=== PATIENT | male | born 1975 | race Caucasian/White ===

== ENCOUNTER 2017-04-30 09:04 | Emergency (ER) | payer BC, SELFPAY ==
[2017-04-30 09:30] VITALS: BP 109/75; PULSE 81; RESP 18; TEMP 37.1; O2SAT 98; BMI 28.1
--- NOTE | 2017-04-30 09:47 | HMH.EDUTC ---
[facility] [place] Impression: Influenza A Disposition: Home, Self-Care Condition on Discharge: Good Instructions: DI for Influenza -- Adult Additional Instructions: *Discussed risks, side effects, risk of allergic reaction, and possible benefits. We even discussed hallucinations and uncontrollable fevers. Pt decline tamiflu * Lots of rest * Increase fluids, water, gatorade, powerade, pedialyte if /toddler/child * Monitor Temp. Tylenol every 4 hours as needed no more then 5 times a day or 4000mg in 24 hours and/or ibuprofen every 6 hours as needed no more then 3200mg in 24 hours (as long as your primary care doctor has told you that it is ok to take both) for fever/aches/pain. ER if fever no less than 101 despite tylenol and Ibuprofen * Bromfed may cause drowsiness. Know how it effects you (or your child) before driving, caring for small children, or sending your child to school. No other antihistamines/allergy medications/decongestants while taking bromfed. * You (or your child) are contagious until no fever, aches, chills x 24 hours without medication for symptoms. I understand you would like to try and go back Monday but if still symptomatic, be sure to follow up See primary care, utc or ER IMMEDIATELY for new or worsening symptoms, improvement followed by suddenly feeling worse OR no noticeable improvement over the next 48-72 hours. 911 for difficulty breathing Prescriptions: Brompheniramine/Pseudoephed/Dm [Bromfed DM Cough Syrup 5mL] 10 ml PO QID #240 ml Forms: Work/School Release Time of Disposition: 09:50 Medical Decision Making Vital Signs: 04/30/17 09:30 Temperature 98.7 F Temperature Source Temporal Artery Scan Pulse Rate [Right Radial] 81 Respiratory Rate 18 Blood Pressure [Right Arm] 109/75 Blood Pressure Mean [Right Arm] 86 Blood Pressure Source [Right Arm] Automatic Cuff Blood Pressure Position [Right Arm] Sitting 02 Sat by Pulse Oximetry 98 Oxygen Delivery Method Room Air - Lab Data Lab results reviewed: Yes: I reviewed the patient's lab results. Lab Results 04/30/17 09:44: Influenza Type A Ag Positive A, Influenza Type B Ag Negative - Renan Inquiry Pt receiving controlled substance: No [facility] [place] - General Stated complaint: flu like symptoms Time Seen by Provider: 04/30/17 09:47 Mode of Arrival: Family Vehicle Source of Information: Patient Limitations: No Limitations Description of Symptoms (Recalled from Triage Doc. by RN): flu like symptoms HEENT Symptoms (Recalled from RN notes): Yes (flu symptoms) Resp Symptoms (Recalled from RN notes): Yes (flu symptoms) Skin Symptoms (Recalled from RN notes): No MS Symptoms (Recalled from RN notes): No Functional Status (Recalled from RN notes): na - History of Present Illness Provider Complaint: c/o I guess I have flu . Body aches, chills, rhinorrhea, prod cough, yellow sputum, mild GRAVES, subjective fever. Started with minimal symptoms yesterday morning and by the end of the day I just felt like I had been run over . Tylenol helps. 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 - Related Data Home Medications Medication Instructions Recorded Confirmed Escitalopram Oxalate 10 mg PO DAILY 04/30/17 04/30/17 Previous Rx's Medication Instructions Recorded Brompheniramine/Pseudoephed/Dm 10 ml PO QID #240 ml 04/30/17 [Bromfed DM Cough Syrup 5mL] Allergies Allergy/AdvReac Type Severity Reaction Status Date / Time aspirin [ASPIRIN] Allergy Unknown Verified 04/30/17 09:36 - Worker's Comp Is this a Worker's Comp case?: No [facility] History I have reviewed the patient's past medical history: Yes Medical History: Reports:: Anxiety Other Surgeries: Yes: Other (mastoidectomy right ear) - *Social History Smoking Status: Never smoker Alcohol Intake: never - Psychiatric History Expresses thoughts of harming self/others: None Suicide Plan Description: No Plan ROS Obtained: Yes Systems reviewed
[2017-04-30 09:48] LABS: UTC Influenza A Antigen Positive (Negative); UTC Influenza B Antigen Negative (Negative)
--- NOTE | 2017-04-30 09:50 | ED_ITS ---
[facility] [place] Impression: Influenza A Disposition: Home, Self-Care Condition on Discharge: Good Instructions: DI for Influenza -- Adult Additional Instructions: *Discussed risks, side effects, risk of allergic reaction, and possible benefits. We even discussed hallucinations and uncontrollable fevers. Pt decline tamiflu * Lots of rest * Increase fluids, water, gatorade, powerade, pedialyte if infant/toddler/child * Monitor Temp. Tylenol every 4 hours as needed no more then 5 times a day or 4000mg in 24 hours and/or ibuprofen every 6 hours as needed no more then 3200mg in 24 hours (as long as your primary care doctor has told you that it is ok to take both) for fever/aches/pain. ER if fever no less than 101 despite tylenol and Ibuprofen * Bromfed may cause drowsiness. Know how it effects you (or your child) before driving, caring for small children, or sending your child to school. No other antihistamines/allergy medications/decongestants while taking bromfed. * You (or your child) are contagious until no fever, aches, chills x 24 hours without medication for symptoms. I understand you would like to try and go back Monday but if still symptomatic, be sure to follow up See primary care, utc or ER IMMEDIATELY for new or worsening symptoms, improvement followed by suddenly feeling worse OR no noticeable improvement over the next 48-72 hours. 911 for difficulty breathing Prescriptions: Brompheniramine/Pseudoephed/Dm [Bromfed DM Cough Syrup 5mL] 10 ml PO QID #240 ml Forms: Work/School Release Time of Disposition: 09:50 Medical Decision Making Vital Signs: 04/30/17 09:30 Temperature 98.7 F Temperature Source Temporal Artery Scan Pulse Rate [Right Radial] 81 Respiratory Rate 18 Blood Pressure [Right Arm] 109/75 Blood Pressure Mean [Right Arm] 86 Blood Pressure Source [Right Arm] Automatic Cuff Blood Pressure Position [Right Arm] Sitting 02 Sat by Pulse Oximetry 98 Oxygen Delivery Method Room Air - Lab Data Lab results reviewed: Yes: I reviewed the patient's lab results. Lab Results 04/30/17 09:44: Influenza Type A Ag Positive A, Influenza Type B Ag Negative - Renan Inquiry Pt receiving controlled substance: No [facility] [place] - General Stated complaint: flu like symptoms Time Seen by Provider: 04/30/17 09:47 Mode of Arrival: Family Vehicle Source of Information: Patient Limitations: No Limitations Description of Symptoms (Recalled from Triage Doc. by RN): flu like symptoms HEENT Symptoms (Recalled from RN notes): Yes (flu symptoms) Resp Symptoms (Recalled from RN notes): Yes (flu symptoms) Skin Symptoms (Recalled from RN notes): No MS Symptoms (Recalled from RN notes): No Functional Status (Recalled from RN notes): na - History of Present Illness Provider Complaint: c/o I guess I have flu . Body aches, chills, rhinorrhea, prod cough, yellow sputum, mild GRAVES, subjective fever. Started with minimal symptoms yesterday morning and by the end of the day I just felt like I had been run over . Tylenol helps. 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 - Related Data Home Medications Medication Instructions Recorded Confirmed Escitalopram Oxalate 10 mg PO DAILY 04/30/17 04/30/17 Previous Rx's Medication Instructions Recorded Brompheniramine/Pseudoephed/Dm 10 ml PO QID #240 ml 04/30/17 [Bromfed DM Cough Syrup 5mL] Allergies
[2017-04-30 09:52] VITALS: BP 122/78; PULSE 98; RESP 20; TEMP 36.6; O2SAT 99
== END 2017-04-30 09:53 | disposition home or self-care (01) ==
PROVIDERS: Emergency Provider Nurse Practitioner Family; Family Provider Family Medicine
DX: J10.1 Influenza due to other identified influenza virus with other respiratory manifestations (principal); F41.9 Anxiety disorder, unspecified
CPT/HCPCS: 87804; 99201

== ENCOUNTER → 2018-12-17 15:11 | Outpatient (POV) | payer BC, SELFPAY | PROVIDERS: PCP Family Medicine; Visit Provider Nurse Practitioner Family | DX: Z00.00 Encounter for general adult medical examination without abnormal findings (principal) ==

== ENCOUNTER → 2022-03-29 13:21 | Outpatient (CLI) | payer BC, SELFPAY ==
--- NOTE | 2022-03-29 13:36 | XR_ITS ---
FINAL REPORT CLINICAL HISTORY: PERSISTENT COUGH for 2 weeks, non-smoker. No chest surgeries. FINDINGS: TWO-VIEW CHEST Two views of the chest were obtained. The heart size and pulmonary vascularity are within normal limits. The mediastinum is normal. No acute pulmonary abnormality is identified. There is no pneumothorax. The bony thorax is intact. IMPRESSION: No active cardiopulmonary disease. Reviewed, Interpreted and Dictated by Tasha Lynn MD Transcribed by Carline Bundy Authenticated and [facility]
== END ==
PROVIDERS: PCP Nurse Practitioner Family; Visit Provider Nurse Practitioner Family
DX: R05.9 Cough, unspecified (principal)
CPT/HCPCS: 71046

== ENCOUNTER → 2023-01-26 16:32 | Outpatient (CLI) | payer BC, SELFPAY ==
--- NOTE | 2023-01-26 | XR_ITS ---
PROCEDURE INFORMATION: Exam: XR Chest Exam date and time: 01/26/2023 4:37 PM Age: 47 years old Clinical indication: Cough; Additional info: Acute bronchitis TECHNIQUE: Imaging protocol: Radiologic exam of the chest. Views: 2 views. COMPARISON: CR XR CHEST 2V 03/29/2022 2:03 PM FINDINGS: Lungs: Unremarkable. No consolidation. Pleural spaces: Unremarkable. No pleural effusion. No pneumothorax. Heart/Mediastinum: Unremarkable. No cardiomegaly. Bones/joints: Unremarkable. IMPRESSION: No acute findings.
== END ==
LOC: RAD 16:33
PROVIDERS: PCP Nurse Practitioner Family; Visit Provider Physician Assistant
DX: J20.9 Acute bronchitis, unspecified (principal)
CPT/HCPCS: 71046

== ENCOUNTER 2023-04-16 16:01 | Emergency (ER) | payer BC, SELFPAY ==
[2023-04-16 16:30] VITALS: BP 148/78; PULSE 91; RESP 17; TEMP 36.9; O2SAT 98; BMI 28.1
[2023-04-16 17:00] LABS: UTC Strep Screen (Rapid) Negative (Negative)
--- NOTE | 2023-04-16 17:00 | ED_ITS ---
Discharge Plan Disposition Patient Disposition: Home, Self-Care Condition: Good Prescriptions Prescriptions: New amoxicillin 875 mg tablet 875 mg PO Q12H Qty: 20 0RF No Action omeprazole 20 mg capsule,delayed release(DR/EC) 20 mg PO DAILY Patient Comments: TAKE 1 CAPSULE BY MOUTH EVERY DAY escitalopram oxalate [Lexapro] 10 mg tablet 10 mg PO DAILY Referrals Follow up/Referrals: Elzbieta Molina APRN [Primary Care Provider] - See instructions Activity Restrictions/Add. Instructions Additional Instructions/Restrictions: *Monitor Temp, Over the counter Motrin or Tylenol as directed/as needed Tylenol every 4 hours and Motrin every 6 hours (as long as your family doctor has told you that you can take it) for fever or pain. and straight to ER if unable to lower temp less than 101.0 after medication given *Warm salt water gargles may help to soothe the throat *Throat Lozenges? *Warm fluids like tea with honey may help to soothe the throat? *Sleep elevated *Humidifier/Vaporizer Your throat swab was sent for culture. Those results are typically sent to your primary care. Be sure to follow up in 2-3 days with your family doctor/primary care physician if no improvement so they can review those result and treat if necessary. If you don?t have a primary care doctor, I recommend you get one but in the mean time, you will have to return to a walk in clinic Follow up IMMEDIATELY for new or worsening symptoms or no Noticeable improvement over the next 48-72 hours. 911 for difficulty breathing or swallowing Clinical Impressions Clinical Impression: Pharyngitis Qualifiers: Pharyngitis/tonsillitis etiology: unspecified etiology Qualified Code(s): J02.9 - Acute pharyngitis, unspecified Stand Alone Forms Stand Alone Forms: Work/School Release Instructions Patient Instructions: Sore Throat Discharge ED Provider: Verenice Velazquez [facility] General Stated complaint: sore throat Mode of Arrival: Ambulatory Source of Information: Patient Limitations: No Limitations Time Seen by Provider: 04/16/23 17:00 Description of Symptoms (Recalled from Triage Doc. by RN): PATIENT C/O SORE THROAT X 2 DAYS HEENT Symptoms (Recalled from RN notes): Yes Resp Symptoms (Recalled from RN notes): No Skin Symptoms (Recalled from RN notes): No MS Symptoms (Recalled from RN notes): No Functional Status (Recalled from RN notes): WNL History of Present Illness Provider Complaint: Patient states that for the last couple of days he has been having very bad sore throat States that he has tried warm tea and other home remedies but hasnt helped and tody it was getting worse Related Data Home Medications Medication Instructions Recorded Confirmed omeprazole 20 mg capsule,delayed 20 mg PO DAILY 03/29/21 04/16/23 release escitalopram oxalate 10 mg tablet 10 mg PO DAILY 02/02/23 04/16/23 (Lexapro) Previous Rx's Medication Instructions Recorded amoxicillin 875 mg tablet 875 mg PO Q12H #20 tabs 04/16/23 Allergies Allergy/AdvReac Type Severity Reaction Status Date / Time aspirin [ASPIRIN] Allergy Unknown Verified 02/02/23 08:47 Worker's Comp Is this a Worker's Comp case?: No [facility] Disclaimer: The information contained in this section may have been updated after the patient was seen, as this information can be updated by other users. Social History Smoking Status: Never smoker alcohol intake: never substance use type: denies use current occupational status: employed Travel in the last 8 weeks: None caffeine: Yes ROS Obtained: Yes All systems reviewed & no additional complaints except as documented and Yes Systems reviewed as appropriate & no additional complaints except as documented Constitutional Constitutional: Reports system reviewed and no additional complaints, except as documented, Reports as per HPI and Reports headache(s) ENT Ears, Nose, Mouth, and Throat: Reports system reviewed and no additional complaints, except as documented, Reports as per HPI, Reports headache(s) and Reports sore throat Cardiovascular Cardiovascular: Reports system reviewed and no additional complaints, except as documented and Reports as per HPI Respiratory Respiratory: Reports system reviewed and no additional complaints, except as do cumented and Reports as per HPI Gastrointestinal Gastrointestingal: Reports system reviewed and no additional complaints, except as documented and as per HPI Neurologic Neurologic: Reports headache(s) Physical Exam General General appearance: alert and in no apparent distress Expanded ENT Exam Nose exam: Absent sinus tenderness Throat exam: Present tonsillar erythema and tonsillar exudate (Patchy like area on right tonsil area) Respiratory Respiratory exam: Present normal lung sounds bilaterally; Absent respiratory distress or wheezes Cardiovascular Cardiovascular exam: Present regular rate, normal rhythm and normal heart sounds Abdominal Exam Abdominal exam: Present soft and normal bowel sounds; Absent distention or tenderness Neurological Exam Neurological exam: Present alert, oriented X3 and normal gait Medical Decision Making Renan Inquiry Pt receiving controlled substance: No Renan was queried for this patient: No Vital Signs: 04/16/23 16:30 Temperature 98.5 F Temperature Source Oral Pulse Rate [Right Brachial] 91 H Respiratory Rate 17 Blood Pressure [Right Arm] 148/78 H Blood Pressure Mean [Right Arm] 101 Blood Pressure Source [Right Arm] Automatic Cuff Blood Pressure Position [Right Arm] Sitting 02 Sat by Pulse Oximetry 98 Oxygen Delivery Method Room Air Lab Data Lab results reviewed: Yes I reviewed the patient's lab results. Lab Results 04/16/23 16:45: Strep Scn Rapid Clinic Negative
[2023-04-16 17:09] VITALS: BP 148/78; PULSE 91; RESP 17; TEMP 36.9; O2SAT 98
== END 2023-04-16 17:16 | disposition home or self-care (01) ==
PROVIDERS: Emergency Provider Nurse Practitioner; PCP Nurse Practitioner Family
DX: J02.9 Acute pharyngitis, unspecified (principal); R51.9 Headache, unspecified
CPT/HCPCS: 87880; 99204; 99212; G0463

== ENCOUNTER 2023-05-15 14:58 | Outpatient (CLI) | payer BC, SELFPAY ==
[2023-05-22 04:06] LABS: Pancreatic Elastase, Fecal 187 (>200)
== END 2023-05-15 23:59 ==
LOC: LAB.DROPOF 14:59
PROVIDERS: PCP Nurse Practitioner Family; Visit Provider Nurse Practitioner Family
DX: K30 Functional dyspepsia (principal); K21.9 Gastro-esophageal reflux disease without esophagitis; R14.3 Flatulence; Z12.11 Encounter for screening for malignant neoplasm of colon
CPT/HCPCS: 82656